=== PATIENT | male | born 1945 | race Caucasian/White ===

== ENCOUNTER → 2016-11-27 | Outpatient (CLI) | payer OTHER ==
[~2016-11-27] MED LIST: AMLO10TA2 PO; FOLI1TAB47 PO; HYDR-3343 PO; HYDR25TA6 PO; LISI-170 PO; OMNIPAQUE 350 MG/ML, 150 ML BOTTLE ONE
== END | disposition home or self-care (01) ==
LOC: RAD 10:19
PROVIDERS: ATTEND Thoracic Surgery (Cardiothoracic Vascular Surgery)
DX: I51.7 Cardiomegaly (principal); I71.6 Thoracoabdominal aortic aneurysm, without rupture; K76.0 Fatty (change of) liver, not elsewhere classified; K80.20 Calculus of gallbladder without cholecystitis without obstruction
CPT/HCPCS: 71275; Q9967

== ENCOUNTER 2016-12-02 04:14 | Inpatient (IN) | payer OTHER ==
[2016-12-01 13:50] LABS: PATH.CAST-FLAG NOT PRESENT; SPERM-FLAG NOT PRESENT; SRC-FLAG NOT PRESENT; XTAL-FLAG NOT PRESENT; YLC-FLAG NOT PRESENT
[2016-12-01 14:04] LABS: ASPARTATE AMINO TRANSFERASE 19 U/L (15-37); BLOOD UREA NITROGEN 21 mg/dL (7-18)
[~2016-12-02] VITALS: Ht 170.2 cm; Wt 99.9 kg
[~2016-12-02 04:14] MED LIST changes: -OMNIPAQUE 350 MG/ML, 150 ML BOTTLE ONE
[2016-12-02] MEDS ORDERED: ALBUMIN HUMAN 5% 500 ML IV ONE (04:30)
[2016-12-02] MEDS ORDERED: CHLORHEXIDINE MOUTHWASH 15 ML UDC MM SCH (05:00)
[2016-12-02 05:12] VITALS: BP_SYST 141; BP_DIAS 55; BP_DIAS 56
[2016-12-02] MEDS: MUPIROCIN OINT 2%, 22GM TP SCH ×2 (05:36→21:00)
[2016-12-02] MEDS ORDERED: INSULIN ASPART 100 UNITS/ML, PEN SQ-INSULIN SCH (06:00)
[2016-12-02] MEDS ORDERED: FENTANYL PF 1000 MCG/20ML ONE (06:45)
[2016-12-02] MEDS ORDERED: MIDAZOLAM 10MG/2 ML ONE (06:46)
[2016-12-02] MEDS ORDERED: ROCURONIUM 10 MG/ML ONE (07:10)
[2016-12-02] MEDS ORDERED: EPINEPHRINE 2 MG in SODIUM CHLORIDE 0.9% 248 ML IV SCH (07:30)
[2016-12-02] MEDS ORDERED: POTASSIUM CHLORIDE 80 MEQ, SODIUM BICARBONATE 8.4% 10 MEQ, MAGNESIUM SULFATE 0.5 GM, LI... IV PRN (07:30)
[2016-12-02] MEDS ORDERED: REGULAR INSULIN 62.5 UNITS in SODIUM CHLORIDE 0.9% 249.375 ML IV PRN (07:30)
[2016-12-02] MEDS ORDERED: DEXMEDETOMIDINE 200 MCG in SODIUM CHLORIDE 0.9% 48 ML IV SCH (07:30)
[2016-12-02] MEDS ORDERED: VANCOMYCIN 1,600 MG in SODIUM CHLORIDE 0.9% 250 ML IV PRN (07:30)
[2016-12-02] MEDS ORDERED: CEFUROXIME 1.5 GM in SODIUM CHLORIDE 0.9% 50 ML IVPB PRN (07:30)
[2016-12-02] MEDS ORDERED: PHENYLEPHRINE 10 MG in SODIUM CHLORIDE 0.9% 249 ML IV PRN ×2 (07:30→10:18)
[2016-12-02] MEDS ORDERED: MANNITOL PMX 20% 500 ML IVPB PRN (07:30)
[2016-12-02] MEDS ORDERED: DOBUTAMINE 250 MG in SODIUM CHLORIDE 0.9% 230 ML IV PRN (10:18)
[2016-12-02] MEDS ORDERED: NITROGLYCERIN/D5W PMX 250 ML IV PRN (10:18)
[2016-12-02] MEDS ORDERED: SODIUM CHLORIDE 0.9% 1,000 ML IV PRN (10:18)
[2016-12-02] MEDS ORDERED: ACETAMINOPHEN 325 MG TABLET PO PRN (10:30)
[2016-12-02] MEDS ORDERED: BISACODYL 10 MG SUPP PR PRN (10:30)
[2016-12-02] MEDS ORDERED: ONDANSETRON 2MG/ML, 2ML IVPush PRN (10:30)
[2016-12-02] MEDS ORDERED: DEXTROSE 4 GM TAB.CHEW PO PRN (10:30)
[2016-12-02] MEDS ORDERED: ACETAMINOPHEN 650 MG SUPP PR PRN (10:30)
[2016-12-02] MEDS ORDERED: BISACODYL 5 MG EC TABLET PO PRN (10:30)
[2016-12-02] MEDS ORDERED: PROCHLORPERAZINE 5 MG/ML, 2ML IVPush PRN (10:30)
[2016-12-02] MEDS ORDERED: MIDAZOLAM 1 MG/ML, 5ML IVPush PRN (10:30)
[2016-12-02] MEDS ORDERED: GLUCAGON 1 MG IM PRN (10:30)
[2016-12-02] MEDS ORDERED: EPINEPHRINE 2 MG in SODIUM CHLORIDE 0.9% 248 ML IV PRN (10:30)
[2016-12-02] MEDS ORDERED: MEPERIDINE/PF 25MG/0.5ML IVPush PRN (10:30)
[2016-12-02] MEDS ORDERED: DEXTROSE 50%, 50ML SYRINGE IVPush PRN (10:30)
[2016-12-02] MEDS: LACTATED RINGERS 500 ML IV PRN ×4 (10:48→16:10)
[2016-12-02 10:56] LABS: ABG COLLECTION SITE ARTERIAL LINE; FIO2 100 %
[2016-12-02] MEDS: KSCALE TO 4.5 IV SCH ×3 (11:15→22:30)
[2016-12-02] MEDS: SODIUM CHLORIDE FLUSH 10ML SYR IVF SCH ×3 (11:15→21:40)
[2016-12-02] MEDS: MAGNESIUM SULFATE 1 GM in SODIUM CHLORIDE 0.9% 50 ML IVPB SCH (11:20)
[2016-12-02] MEDS: DEXMEDETOMIDINE 200 MCG in SODIUM CHLORIDE 0.9% 48 ML IV PRN (12:20)
[2016-12-02] MEDS: morphine SULFATE 10 MG/ML, 1ML IVPush PRN ×2 (12:45→20:30)
[2016-12-02] MEDS: SODIUM BICARB 8.4%, 50ML SYRINGE IV PRN ×2 (14:01→14:59)
[2016-12-02] MEDS ORDERED: ALBUMIN HUMAN 25% 50 ML ONE (14:15)
[2016-12-02] MEDS ORDERED: LIDOCAINE 2% 100MG/5ML SYRINGE ONE (14:16)
[2016-12-02] MEDS ORDERED: SODIUM BICARBONATE 1 MEQ/ML, 50ML VIAL ONE (14:20)
[2016-12-02] MEDS ORDERED: HEPARIN 1,000 UNITS/ML, 30ML ONE (14:20)
[2016-12-02] MEDS ORDERED: PROTAMINE SULFATE 10 MG/ML, 25ML ONE (14:20)
[2016-12-02] MEDS ORDERED: CALCIUM CHLORIDE 10%, 10ML SYR ONE (14:20)
[2016-12-02] MEDS ORDERED: AMINOCAPROIC ACID 250 MG/ML, 20ML ONE (14:20)
[2016-12-02] MEDS ORDERED: MILRINONE 1 MG/ML, 10ML IV ONE (14:21)
[2016-12-02] MEDS ORDERED: methylPREDNISolone SOD SUCC 125 MG/2 ML ONE (14:21)
[2016-12-02] MEDS ORDERED: VASOPRESSIN 100 UNIT in SODIUM CHLORIDE 0.9% 495 ML IV PRN (14:30)
[2016-12-02 16:19] LABS: ABG COLLECTION SITE ARTERIAL LINE
[2016-12-02] MEDS ORDERED: SODIUM BICARBONATE 1 MEQ/ML, 50ML VIAL IV PRN (16:28)
[2016-12-02] MEDS ORDERED: LACTATED RINGERS 1,000 ML IVBOLUS ONE (17:00)
[2016-12-02] MEDS ORDERED: SODIUM BICARBONATE 1 MEQ/ML, 50ML VIAL IVPush ONE (17:00)
[2016-12-02] MEDS ORDERED: POTASSIUM CHLORIDE PMX 100 ML IV ONE (17:00)
[2016-12-02] MEDS ORDERED: CALCIUM CHLORIDE 13.6 MEQ in SODIUM CHLORIDE 0.9% 100 ML IV ONE (17:00)
[2016-12-02] MEDS: REGULAR INSULIN 62.5 UNITS in SODIUM CHLORIDE 0.9% 249.375 ML IV PRN (17:08)
[2016-12-02] MEDS: PROPOFOL 100 ML IV PRN ×2 (17:22→22:00)
[2016-12-02] MEDS ORDERED: MIDAZOLAM 1 MG/ML, 2ML IVPush PRN (17:30)
[2016-12-02] MEDS ORDERED: PHARMACY MAY ADJ FOR RENAL FX MC SCH (17:30)
[2016-12-02] MEDS ORDERED: PROPOFOL 100 ML IV PRN (17:30)
[2016-12-02] MEDS ORDERED: ALBUTEROL/IPRATROPIUM 2.5MG/0.5MG, 3 ML INLINE PRN (17:30)
[2016-12-02] MEDS ORDERED: LIDOCAINE-MPF 1%, 2ML ENDO PRN (17:30)
[2016-12-02] MEDS: CEFUROXIME 1.5 GM in SODIUM CHLORIDE 0.9% 50 ML IVPB SCH (18:11)
[2016-12-02] MEDS: VANCOMYCIN 1,700 MG in SODIUM CHLORIDE 0.9% 250 ML IVPB SCH (18:45)
[2016-12-02] MEDS: SODIUM BICARBONATE 8.4% 150 MEQ in DEXTROSE 5% 1,000 ML IV SCH (18:48)
[2016-12-02] MEDS: DOCUSATE 100 MG CAPSULE PO SCH (21:00)
[2016-12-02] MEDS: MUPIROCIN OINT 2%, 22GM NAS SCH (21:39)
[2016-12-02] MEDS: HYDROcodone/APAP 10/325 MG TABLET PO PRN (22:00)
[2016-12-03] MEDS: REGULAR INSULIN 62.5 UNITS in SODIUM CHLORIDE 0.9% 249.375 ML IV PRN (00:06)
[2016-12-03] MEDS: SODIUM BICARBONATE 8.4% 150 MEQ in DEXTROSE 5% 1,000 ML IV SCH (02:32)
[2016-12-03] MEDS: KSCALE TO 4.5 IV SCH ×3 (04:30→16:30)
[2016-12-03] MEDS: CEFUROXIME 1.5 GM in SODIUM CHLORIDE 0.9% 50 ML IVPB SCH (05:06)
[2016-12-03 05:39] LABS: ABG COLLECTION SITE ARTERIAL LINE
[2016-12-03 05:45] LABS: BLOOD UREA NITROGEN 27 mg/dL (7-18)
[2016-12-03] MEDS: PROPOFOL 100 ML IV PRN ×2 (06:23→22:30)
[2016-12-03] MEDS: VANCOMYCIN 1,700 MG in SODIUM CHLORIDE 0.9% 250 ML IVPB SCH (06:24)
[2016-12-03] MEDS: MUPIROCIN OINT 2%, 22GM TP SCH (07:34)
[2016-12-03] MEDS: DEXMEDETOMIDINE 200 MCG in SODIUM CHLORIDE 0.9% 48 ML IV PRN ×3 (07:36→16:55)
[2016-12-03] MEDS: ASPIRIN 81 MG TABLET EC PO SCH (07:36)
[2016-12-03] MEDS: DOCUSATE 100 MG CAPSULE PO SCH ×2 (07:36→20:41)
[2016-12-03] MEDS: MUPIROCIN OINT 2%, 22GM NAS SCH ×2 (07:37→20:40)
[2016-12-03] MEDS: PANTOPRAZOLE 40 MG IV IVPush SCH (07:38)
[2016-12-03] MEDS: SODIUM CHLORIDE FLUSH 10ML SYR IVF SCH ×3 (07:38→20:37)
[2016-12-03] MEDS: ALBUTEROL/IPRATROPIUM 2.5MG/0.5MG, 3 ML NPPB SCH ×4 (09:50→21:30)
[2016-12-03] MEDS ORDERED: MORPHINE SULFATE 4 MG/ML, 1ML ONE ×3 (09:59→20:32)
[2016-12-03] MEDS: SODIUM BICARBONATE 4.2%, 5ML NPPB SCH ×4 (10:00→21:30)
[2016-12-03] MEDS: CLEVIDIPINE 50 ML IV PRN ×2 (10:03→16:55)
[2016-12-03] MEDS: CHLORHEXIDINE MOUTHWASH 15 ML UDC MM SCH ×2 (10:08→22:30)
[2016-12-03] MEDS: MAGNESIUM SULFATE 1 GM in SODIUM CHLORIDE 0.9% 50 ML IVPB SCH (12:35)
[2016-12-03] MEDS: morphine SULFATE 10 MG/ML, 1ML IVPush PRN ×2 (13:51→20:36)
[2016-12-03] MEDS ORDERED: FUROSEMIDE 20 MG/2 ML ONE (15:12)
[2016-12-03] MEDS ORDERED: FUROSEMIDE 20 MG/2 ML IV ONE (15:30)
[2016-12-03] MEDS ORDERED: WARFARIN 5 MG TABLET PO-COUM ONE (18:00)
[2016-12-04] MEDS ORDERED: MORPHINE SULFATE 4 MG/ML, 1ML ONE (00:31)
[2016-12-04] MEDS: morphine SULFATE 10 MG/ML, 1ML IVPush PRN ×4 (00:35→20:56)
[2016-12-04] MEDS: ALBUTEROL/IPRATROPIUM 2.5MG/0.5MG, 3 ML NPPB SCH ×3 (01:30→09:30)
[2016-12-04] MEDS: SODIUM BICARBONATE 4.2%, 5ML NPPB SCH ×2 (01:30→05:30)
[2016-12-04 04:28] LABS: ABG COLLECTION SITE ARTERIAL LINE
[2016-12-04 04:46] LABS: BLOOD UREA NITROGEN 35 mg/dL (7-18)
[2016-12-04] MEDS: CLEVIDIPINE 50 ML IV PRN (05:03)
[2016-12-04] MEDS: DEXMEDETOMIDINE 200 MCG in SODIUM CHLORIDE 0.9% 48 ML IV PRN (05:06)
[2016-12-04] MEDS: FUROSEMIDE 20 MG/2 ML IV SCH ×2 (07:30→15:55)
[2016-12-04] MEDS: PANTOPRAZOLE 40 MG IV IVPush SCH (08:38)
[2016-12-04] MEDS: SODIUM CHLORIDE FLUSH 10ML SYR IVF SCH ×2 (08:38→20:54)
[2016-12-04] MEDS: ASPIRIN 81 MG TABLET EC PO SCH (08:39)
[2016-12-04] MEDS: DOCUSATE 100 MG CAPSULE PO SCH ×2 (08:39→20:54)
[2016-12-04] MEDS: AMLODIPINE 5 MG TABLET PO SCH (08:40)
[2016-12-04] MEDS: POTASSIUM CHLORIDE 10 MEQ TABLET.ER PO SCH ×2 (08:40→15:54)
[2016-12-04] MEDS: MUPIROCIN OINT 2%, 22GM NAS SCH ×2 (08:41→20:54)
[2016-12-04] MEDS ORDERED: CLEVIDIPINE 100 ML IV PRN (09:00)
[2016-12-04] MEDS ORDERED: LISINOPRIL 5 MG TABLET PO SCH (09:00)
[2016-12-04] MEDS ORDERED: FUROSEMIDE 40 MG/4 ML IV ONE (09:00)
[2016-12-04] MEDS: MAGNESIUM SULFATE 1 GM in SODIUM CHLORIDE 0.9% 50 ML IVPB SCH (09:09)
[2016-12-04] MEDS: CHLORHEXIDINE MOUTHWASH 15 ML UDC MM SCH ×2 (09:09→20:54)
[2016-12-04] MEDS ORDERED: ALBUTEROL/IPRATROPIUM 2.5MG/0.5MG, 3 ML NPPB PRN (12:30)
[2016-12-04] MEDS: HYDROcodone/APAP 10/325 MG TABLET PO PRN ×2 (12:31→15:55)
[2016-12-04] MEDS: INSULIN ASPART 100 UNITS/ML, PEN SQ-INSULIN PRN (16:07)
[2016-12-04] MEDS ORDERED: WARFARIN 5 MG TABLET PO-COUM SCH (18:00)
[2016-12-04] MEDS: OXYcodone IR 5MG TABLET PO PRN (19:28)
[2016-12-05] MEDS: OXYcodone IR 5MG TABLET PO PRN ×4 (01:15→20:00)
[2016-12-05 05:19] LABS: BLOOD UREA NITROGEN 31 mg/dL (7-18)
[2016-12-05] MEDS: INSULIN ASPART 100 UNITS/ML, PEN SQ-INSULIN PRN ×3 (08:00→20:43)
[2016-12-05] MEDS: SODIUM CHLORIDE FLUSH 10ML SYR IVF SCH ×2 (08:33→20:38)
[2016-12-05] MEDS: POTASSIUM CHLORIDE 10 MEQ TABLET.ER PO SCH (08:33)
[2016-12-05] MEDS: DOCUSATE 100 MG CAPSULE PO SCH ×2 (08:34→20:38)
[2016-12-05] MEDS: MUPIROCIN OINT 2%, 22GM NAS SCH ×2 (08:34→20:38)
[2016-12-05] MEDS: FUROSEMIDE 20 MG/2 ML IV SCH (08:34)
[2016-12-05] MEDS: PANTOPRAZOLE 40 MG IV IVPush SCH (08:34)
[2016-12-05] MEDS: AMLODIPINE 5 MG TABLET PO SCH (08:35)
[2016-12-05] MEDS: ASPIRIN 81 MG TABLET EC PO SCH (08:35)
[2016-12-05] MEDS: LISINOPRIL 5 MG TABLET PO SCH (08:38)
[2016-12-05] MEDS ORDERED: WARFARIN 5 MG TABLET PO-COUM SCH (18:00)
[2016-12-06] MEDS: INSULIN ASPART 100 UNITS/ML, PEN SQ-INSULIN PRN ×3 (00:47→16:27)
[2016-12-06] MEDS: OXYcodone IR 5MG TABLET PO PRN ×3 (00:47→23:51)
[2016-12-06 05:39] LABS: BLOOD UREA NITROGEN 36 mg/dL (7-18)
[2016-12-06] MEDS: FUROSEMIDE 20 MG/2 ML IV SCH (08:22)
[2016-12-06] MEDS: LISINOPRIL 5 MG TABLET PO SCH (08:22)
[2016-12-06] MEDS: DOCUSATE 100 MG CAPSULE PO SCH ×2 (08:22→21:17)
[2016-12-06] MEDS: AMLODIPINE 5 MG TABLET PO SCH (08:22)
[2016-12-06] MEDS: POTASSIUM CHLORIDE 10 MEQ TABLET.ER PO SCH (08:22)
[2016-12-06] MEDS: MUPIROCIN OINT 2%, 22GM NAS SCH ×2 (08:22→21:17)
[2016-12-06] MEDS: PANTOPRAZOLE 40 MG IV IVPush SCH (08:22)
[2016-12-06] MEDS: ASPIRIN 81 MG TABLET EC PO SCH (08:22)
[2016-12-06] MEDS: SODIUM CHLORIDE FLUSH 10ML SYR IVF SCH ×3 (08:23→21:20)
[2016-12-06] MEDS: MAGNESIUM HYDROXIDE 8%, 30ML UDC PO PRN (08:25)
[2016-12-06] MEDS ORDERED: OXYcodone/APAP 7.5/325MG TABLET PO PRN (08:30)
[2016-12-06 16:09] VITALS: BP 130/66
[2016-12-06] MEDS ORDERED: WARFARIN 7.5 MG TABLET PO-COUM SCH (18:00)
[2016-12-06 18:01] VITALS: BP 147/83
[2016-12-06 19:16] VITALS: BP 122/74
[2016-12-07 04:39] VITALS: BP 127/64
[2016-12-07 05:39] LABS: BLOOD UREA NITROGEN 33 mg/dL (7-18)
[2016-12-07 06:40] VITALS: BP 147/75
[2016-12-07] MEDS: SODIUM CHLORIDE FLUSH 10ML SYR IVF SCH ×4 (09:00→21:00)
[2016-12-07] MEDS: OXYcodone IR 5MG TABLET PO PRN ×2 (09:59→17:13)
[2016-12-07] MEDS: FUROSEMIDE 20 MG/2 ML IV SCH (10:08)
[2016-12-07] MEDS: PANTOPRAZOLE 40 MG IV IVPush SCH (10:08)
[2016-12-07] MEDS: MUPIROCIN OINT 2%, 22GM NAS SCH (10:08)
[2016-12-07] MEDS: DOCUSATE 100 MG CAPSULE PO SCH ×2 (10:08→20:41)
[2016-12-07] MEDS: ASPIRIN 81 MG TABLET EC PO SCH (10:08)
[2016-12-07] MEDS: POTASSIUM CHLORIDE 10 MEQ TABLET.ER PO SCH (10:09)
[2016-12-07] MEDS: LISINOPRIL 5 MG TABLET PO SCH (10:10)
[2016-12-07] MEDS: AMLODIPINE 5 MG TABLET PO SCH (10:10)
[2016-12-07 13:38] VITALS: BP 122/81
[2016-12-07] MEDS ORDERED: WARFARIN 5 MG TABLET PO-COUM SCH (18:00)
[2016-12-07 18:38] VITALS: BP 117/66
[2016-12-07] MEDS: LISINOPRIL 10 MG TABLET PO SCH (20:42)
[2016-12-07 22:33] VITALS: BP 128/72
[2016-12-07] MEDS: METOPROLOL TARTRATE 25 MG TABLET PO SCH (22:35)
[2016-12-08] MEDS: OXYcodone IR 5MG TABLET PO PRN ×4 (01:08→22:17)
[2016-12-08 01:58] VITALS: BP 128/69
[2016-12-08 05:32] LABS: BLOOD UREA NITROGEN 31 mg/dL (7-18)
[2016-12-08] MEDS: METOPROLOL TARTRATE 25 MG TABLET PO SCH ×2 (05:36→17:54)
[2016-12-08 06:41] VITALS: BP 118/70
[2016-12-08] MEDS ORDERED: HOLD COUMADIN MC PRN (08:00)
[2016-12-08] MEDS: SODIUM CHLORIDE FLUSH 10ML SYR IVF SCH ×4 (09:00→22:11)
[2016-12-08] MEDS: LISINOPRIL 10 MG TABLET PO SCH ×2 (09:17→22:12)
[2016-12-08] MEDS: DOCUSATE 100 MG CAPSULE PO SCH ×2 (09:17→22:11)
[2016-12-08] MEDS: POTASSIUM CHLORIDE 10 MEQ TABLET.ER PO SCH (09:17)
[2016-12-08] MEDS: AMLODIPINE 5 MG TABLET PO SCH (09:17)
[2016-12-08] MEDS: ASPIRIN 81 MG TABLET EC PO SCH (09:17)
[2016-12-08] MEDS: PANTOPROZOLE 40MG TABLET PO SCH (09:17)
[2016-12-08] MEDS: MAGNESIUM HYDROXIDE 8%, 30ML UDC PO PRN (09:20)
[2016-12-08] MEDS: FUROSEMIDE 40 MG/4 ML IV SCH (10:53)
[2016-12-08 13:09] VITALS: BP 153/87
[2016-12-08 18:32] VITALS: BP 111/69
[2016-12-08 22:13] VITALS: BP 115/70
[2016-12-09 01:03] VITALS: BP 121/71
[2016-12-09] MEDS: OXYcodone IR 5MG TABLET PO PRN ×3 (01:52→15:42)
[2016-12-09 06:17] LABS: BLOOD UREA NITROGEN 24 mg/dL (7-18)
[2016-12-09 06:48] VITALS: BP 129/70
[2016-12-09] MEDS: METOPROLOL TARTRATE 25 MG TABLET PO SCH ×2 (06:48→17:45)
[2016-12-09 07:18] VITALS: BP 111/75
[2016-12-09] MEDS: SODIUM CHLORIDE FLUSH 10ML SYR IVF SCH ×2 (09:00→10:12)
[2016-12-09] MEDS: PANTOPROZOLE 40MG TABLET PO SCH (10:10)
[2016-12-09] MEDS: AMLODIPINE 5 MG TABLET PO SCH (10:11)
[2016-12-09] MEDS: ASPIRIN 81 MG TABLET EC PO SCH (10:11)
[2016-12-09] MEDS: FUROSEMIDE 40 MG/4 ML IV SCH (10:11)
[2016-12-09] MEDS: POTASSIUM CHLORIDE 10 MEQ TABLET.ER PO SCH (10:11)
[2016-12-09] MEDS: LISINOPRIL 10 MG TABLET PO SCH (10:11)
[2016-12-09] MEDS: DOCUSATE 100 MG CAPSULE PO SCH (10:12)
[2016-12-09 14:05] VITALS: BP 124/80
[2016-12-09] MEDS ORDERED: ASPI-496 PO (17:23)
[2016-12-09] MEDS ORDERED: WARF5TAB PO (17:24)
[2016-12-09] MEDS ORDERED: DOCU-30 PO (17:28)
[2016-12-09] MEDS ORDERED: OXYC5CAP4 PO (17:30)
[2016-12-09] MEDS ORDERED: FURO40TA6 PO (17:33)
[2016-12-09] MEDS ORDERED: PANT40TA3 PO (17:37)
[2016-12-09] MEDS ORDERED: DOXY100C2 PO (17:38)
[2016-12-09] MEDS ORDERED: METO25TA35 PO (17:49)
[2016-12-09] MEDS ORDERED: POTA10CA PO (18:00)
[2016-12-09] MEDS ORDERED: WARFARIN 1 MG TABLET PO-COUM ONE (18:00)
== END 2016-12-09 18:38 | disposition home health service (06) | DRG 219 ==
LOC: 5SO 04:14 → CCU 08:42 → 5SO 12-06 17:43
PROVIDERS: ADMIT Thoracic Surgery (Cardiothoracic Vascular Surgery); ATTEND Thoracic Surgery (Cardiothoracic Vascular Surgery)
PROC: 5A1221Z Performance of Cardiac Output, Continuous (ICD-10-PCS; 2016-12-02)
PROC: B246ZZ4 Ultrasonography of Right and Left Heart, Transesophageal (ICD-10-PCS; 2016-12-02)
PROC: 02RF08Z Replacement of Aortic Valve with Zooplastic Tissue, Open Approach (ICD-10-PCS; principal; 2016-12-02 07:30)
DX: I35.1 Nonrheumatic aortic (valve) insufficiency (principal); J81.0 Acute pulmonary edema; E87.2 Acidosis; J98.11 Atelectasis; I27.2 Other secondary pulmonary hypertension; I11.0 Hypertensive heart disease with heart failure; I50.9 Heart failure, unspecified; E66.9 Obesity, unspecified; G47.33 Obstructive sleep apnea (adult) (pediatric); I48.91 Unspecified atrial fibrillation; Z79.01 Long term (current) use of anticoagulants; Z99.81 Dependence on supplemental oxygen; Z79.899 Other long term (current) drug therapy; Z68.34 Body mass index [BMI] 34.0-34.9, adult; I34.0 Nonrheumatic mitral (valve) insufficiency
CPT/HCPCS: 36415; 36600; 71010; 71020; 80048; 80053; 81001; 82040; 82330; 82800; 82803; 82810; 82947; 82962; 83036; 83735; 84132; 84295; 84478; 85014; 85018; 85025; 85049; 85347; 85610; 85730; 86850; 86900; 86923; 87070; 87081; 87205; 88305; 93005; 93312; 93321; 93325; 93880; 94002; 94003; 94150; 94640; C1768; J0697; J1644; J1815; J1940; J2250; J2260; J2704; J2720; J3010; J3370; J3475; J3480; J3490; J7070; J7120; J7620; P9045; P9047; C1760; C9113; C9248; J0171; J2270; J2370; J2930; J7040; J7050

== ENCOUNTER 2017-02-01 18:10 | Inpatient (IN) | payer OTHER ==
[~2017-02-01] VITALS: Ht 170.2 cm; Wt 101.6 kg
[~2017-02-01 18:10] MED LIST changes: +ASPI-496 PO; +DOCU-30 PO; +DOXY100C2 PO; +FURO40TA6 PO; +METO25TA35 PO; +OXYC5CAP4 PO; +PANT40TA3 PO; +POTA10CA PO; +WARF5TAB PO
[2017-02-01] MEDS ORDERED: WARF2.5T73 PO (18:39)
[2017-02-01] MEDS ORDERED: PHYTONADIONE 5 MG TABLET PO ONE (20:00)
[2017-02-01 20:07] LABS: BLOOD UREA NITROGEN 17 mg/dL (7-18)
[2017-02-01 22:10] VITALS: BP 151/82
[2017-02-01] MEDS ORDERED: DOCUSATE 100 MG CAPSULE PO PRN (22:30)
[2017-02-01] MEDS ORDERED: TEMAZEPAM 15 MG CAPSULE PO PRN (22:30)
[2017-02-01] MEDS ORDERED: ENALAPRILAT 1.25 MG/ML, 2ML IVPush PRN (22:30)
[2017-02-01] MEDS: METOPROLOL TARTRATE 25 MG TABLET PO SCH (23:37)
[2017-02-02 02:00] VITALS: BP 122/70
[2017-02-02 04:18] VITALS: BP 122/70
[2017-02-02 05:46] LABS: BLOOD UREA NITROGEN 19 mg/dL (7-18)
[2017-02-02 07:31] VITALS: BP 142/82
[2017-02-02] MEDS ORDERED: PHYTONADIONE 5 MG TABLET PO ONE (08:30)
[2017-02-02] MEDS: AMLODIPINE 5 MG TABLET PO SCH (09:13)
[2017-02-02] MEDS: LISINOPRIL 10 MG TABLET PO SCH ×2 (09:13→20:15)
[2017-02-02] MEDS: MULTIVITAMINS/MINERALS TABLET PO SCH (09:13)
[2017-02-02] MEDS: FUROSEMIDE 40 MG TABLET PO SCH (09:13)
[2017-02-02] MEDS: METOPROLOL TARTRATE 25 MG TABLET PO SCH ×2 (09:15→20:14)
[2017-02-02 15:00] VITALS: BP 127/76
[2017-02-02 19:33] VITALS: BP 136/75
[2017-02-03 07:20] VITALS: BP 124/75
[2017-02-03] MEDS: LISINOPRIL 10 MG TABLET PO SCH (09:00)
[2017-02-03] MEDS: METOPROLOL TARTRATE 25 MG TABLET PO SCH (09:00)
[2017-02-03] MEDS: FUROSEMIDE 40 MG TABLET PO SCH (09:09)
[2017-02-03] MEDS: MULTIVITAMINS/MINERALS TABLET PO SCH (09:09)
[2017-02-03] MEDS: AMLODIPINE 5 MG TABLET PO SCH (09:09)
[2017-02-03 13:26] VITALS: BP 119/82
== END 2017-02-03 16:00 | disposition home or self-care (01) | DRG 158 ==
LOC: ED 19:35 → EDIP 20:47 → 4EST 22:15
PROVIDERS: ADMIT Internal Medicine; ATTEND Internal Medicine
DX: K14.8 Other diseases of tongue (principal); D68.69 Other thrombophilia; I50.32 Chronic diastolic (congestive) heart failure; I11.0 Hypertensive heart disease with heart failure; I35.1 Nonrheumatic aortic (valve) insufficiency; I48.91 Unspecified atrial fibrillation; R00.1 Bradycardia, unspecified; E66.9 Obesity, unspecified; T45.515A Adverse effect of anticoagulants, initial encounter; Z68.35 Body mass index [BMI] 35.0-35.9, adult; Z79.01 Long term (current) use of anticoagulants; Z82.49 Family history of ischemic heart disease and other diseases of the circulatory system; Z91.19 Patient's noncompliance with other medical treatment and regimen; Z95.2 Presence of prosthetic heart valve; Y92.9 Unspecified place or not applicable
CPT/HCPCS: 36415; 80048; 82040; 85025; 85610; 99285